=== PATIENT | female | born 1990 | race Caucasian/White ===

== ENCOUNTER → 2018-01-20 | Outpatient (CLI) | payer MEDICAID | LOC: HPND 10:47 | PROVIDERS: ATTEND Obstetrics & Gynecology | DX: O98.413 Viral hepatitis complicating pregnancy, third trimester (principal) | CPT/HCPCS: 76811 ==

== ENCOUNTER → 2018-02-17 | Outpatient (CLI) | payer MEDICAID | LOC: HPND 12:46 | PROVIDERS: ATTEND Obstetrics & Gynecology | DX: O98.413 Viral hepatitis complicating pregnancy, third trimester (principal) | CPT/HCPCS: 76816 ==